=== PATIENT | male | born 1985 | race Caucasian/White ===

== ENCOUNTER 2018-04-24 | Emergency (ER) | payer SELFPAY | END 2018-04-24 15:52 | disposition home or self-care (01) | DX: S60.031A Contusion of right middle finger without damage to nail, initial encounter (principal); S60.041A Contusion of right ring finger without damage to nail, initial encounter; S60.221A Contusion of right hand, initial encounter; W22.03XA Walked into furniture, initial encounter; Y93.89 Activity, other specified; Y92.89 Other specified places as the place of occurrence of the external cause; Y99.8 Other external cause status ==

== ENCOUNTER 2022-03-26 22:02 | Emergency (ER) | payer BC ==
[~2022-03-26] VITALS: Ht 182.8 cm; Wt 82.6 kg
[2022-03-26 22:41] LABS: BILIRUBIN Negative (Negative); BLOOD 3+ (Negative); CLARITY Cloudy (Clear); COLOR Yellow (Yellow); GLUCOSE Negative (Negative); KETONE Negative (Negative); LEUKO ESTERASE Negative (Negative); NITRITE Negative (Negative); PH 6.5 (4.5-8.0); SPECIFIC GRAVITY 1.025 (1.001-1.030)
[2022-03-26 22:53] LABS: RBC 31-40 rbc/hpf (0-2)
[2022-03-26 22:54] LABS: BACTERIA 1+; MUCOUS 1+
[2022-03-26] MEDS ORDERED: ONDANSETRON4 MG SL (23:51)
[2022-03-26] MEDS ORDERED: FLOMAX0.4 MG PO (23:51)
[2022-03-26] MEDS ORDERED: HYDROCODONE-AC1 EAC1 PO (23:51)
== END 2022-03-27 00:22 | disposition home or self-care (01) ==
LOC: ED 22:02
PROVIDERS: Internal Medicine
DX: N20.1 Calculus of ureter (principal)